=== PATIENT | female | born 1970 | race Two or more races ===

== ENCOUNTER 2020-03-16 19:30 | Inpatient (IN) | payer MEDICAID ==
[~2020-03-16] VITALS: Ht 154.9 cm; Wt 65.8 kg
--- NOTE | 2020-03-16 19:37 | NUR ---
not in waiting room
--- NOTE | 2020-03-16 19:45 | NUR ---
ED Nurse Note: PT WALKED IN TO ED C/O SORE THROAT SINCE FRIDAY. PT WAS PX AMOXICILLIN AT URGENT CARE AND HAS BEEN TAKING SINCE 03/14. DENIES SOB, CP. PRESENTS WITH FEVER OF 103 AT TRIAGE AND TACHY OF 135. AAOX4, AMBULATORY, NAD. PT PLACED ON DIRECTOR OF KNOWLEDGE MANAGEMENT AND GOWNED. EKG AT BEDSIDE. PT PLACED IN DROPLET PRECAUTION.
[2020-03-16 19:50] VITALS: BP 127/83
--- NOTE | 2020-03-16 19:50 | NUR ---
ED Nurse Note:. PT BLOOD, URINE, COVID SWAB COLLECTED AND SENT TO LAB.
--- NOTE | 2020-03-16 19:55 | NUR ---
ED Nurse Note: RT AT BEDSIDE FOR ABG
[2020-03-16] MEDS ORDERED: Sodium Chloride 2,200 ML IVLG ONE (20:00)
[2020-03-16] MEDS ORDERED: cefTRIAXone 1 GM in NS 55 ML IVPB ONE (20:00)
[2020-03-16] MEDS ORDERED: Azithromycin 500 MG in NS 275 ML IV ONE (20:00)
--- NOTE | 2020-03-16 20:00 | NUR ---
ED Nurse Note: XR AT BEDSIDE.
--- NOTE | 2020-03-16 20:04 | Emergency Room Report ---
History of Present Illness General Chief Complaint: General Complaint Source: Patient Present Illness HPI Disclaimer: Please note that this report is being documented using [employer] technology. This can lead to erroneous entry secondary to incorrect interpretation by the dictating instrument. HPI: 49-year-old female with no reported medical history presents for evaluation of fevers and sore throat. She was seen at a clinic yesterday and discharged with amoxicillin which she has been taking. She reports persistent sweats and fevers along with chills and persistent sore throat. Denies nasal congestion. Reports mild cough but states because she has phlegm in her throat that she is trying to clear. She denies shortness of breath, chest pain, palpitations, nausea, vomiting, diarrhea. Eating and drinking at baseline. Denies rash or skin breakdown. No known sick contacts. No recent travel. 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 EOMI. uvula midline. Pharynx is erythematous but not edematous. Nonobstructive. No stridor, tolerating secretions well. Cardiovascular: Tachycardic. S1 and S2 normal. No murmur appreciated Resp: Normal work of breathing. 94% on room air. Normal work of breathing. Abdomen: Abdomen is soft, nondistended. Nontender Skin: Intact. No abrasions, laceration or rash over the exposed skin MSK: Normal tone and bulk. Moving all extremities. No obvious deformity. Neuro: Awake and alert. Mentating appropriately. Procedures Critical Care Time Critical Care Time Total critical care time: Approximately 31 minutes Due to a high probability of clinically significant, life threatening deterioration, the patient required the highest level of preparedness to intervene emergently and I personally spent this critical care time directly and personally managing the patient. This critical care time included obtaining a history, examining the patient, pulse oximetry, ordering and reviewing studies , ordering treatments, evaluating response to treatment and updating management plan as needed, frequent reassessment and discussion with other providers as well as arranging for ultimate disposition. This critical to care time was performed to assess and manage the high probability of life-threatening deterioration that could result in multiorgan failure. This critical care time is separate from the separately billable procedures and treating other patients. Medical Decision Making Diagnostic Impression: Primary Impression: Pneumonia due to COVID-19 virus Additional Impression: UTI (urinary tract infection) ER Course Is a 49-year-old female presenting for evaluation of fever. Differential includes was not limited to sepsis, viral syndrome, URI, COVID-19, pneumonia, bronchitis, pharyngitis, tonsillitis, sinusitis to name a few. She arrives febrile, tachycardic saturating between 93-96% on room air but in no respiratory distress, no stridor, no wheezing. 99% on 2 L nasal cannula. Pharynx is erythematous but no exudates. She has been on amoxicillin. Based on the patient's presenting signs, symptoms and physical exam findings, the patient has been screened and is suspected to have COVID-19. Will treat empirically with ceftriaxone azithromycin, send COVID swab, broad labs including lactate, blood cultures, dimer. Patient started on IV fluids, antipyretics, Decadron and empiric antibiotics. Patient will require admission. 2130: Rapid COVID test returned positive. Chest x-ray concerning for bilateral hazy opacities that would be consistent with COVID-19 infection. Labs show an elevated white count with a neutrophil predominance and lymphopenia again consistent with COVID-19 infection. Blood gas shows slightly decreased PO2 at 55 the patient is compensating. She is feeling much better on nasal cannula and saturating 97% on 2 L. Chemistry largely within normal limits. Lactate within normal limits at 1.3. Troponin negative. Elevation in creatinine and ferritin. Dimer slightly elevated 0.95 and Lovenox was given. Possible urinary tract infection as well. Patient is already received ceftriaxone and azithromycin. Fever improving, tachycardia improving. Patient will require admission for COVID-19 pneumonia. Will admit to panel physician Dr. Howard who has accepted the patient. Laboratory Tests Test 03/16/20 20:00 03/16/20 20:05 03/16/20 20:10 White Blood Count 11.1 K/UL (4.8-10.8) H Red Blood Count 4.20 M/UL (4.20-5.40) Hemoglobin 12.5 G/DL (12.0-16.0) Hematocrit 36.8 % (37.0-47.0) L Mean Corpuscular Volume 88 FL (80-99) Mean Corpuscular Hemoglobin 29.8 PG (27.0-31.0) Mean Corpuscular Hemoglobin Concent 34.0 G/DL (32.0-36.0) Red Cell Distribution Width 11.9 % (11.6-14.8) Platelet Count 253 K/UL (150-450) Mean Platelet Volume 7.7 FL (6.5-10.1) Neutrophils (%) (Auto) 88.1 % (45.0-75.0) H Lymphocytes (%) (Auto) 8.3 % (20.0-45.0) L Monocytes (%) (Auto) 3.3 % (1.0-10.0) Eosinophils (%) (Auto) 0.0 % (0.0-3.0) Basophils (%) (Auto) 0.3 % (0.0-2.0) Prothrombin Time 11.1 SEC (9.30-11.50) Prothrombin Time INR 1.0 (0.9-1.1) Activated Partial Thromboplast Time 36 SEC (23-33) H D-Dimer 0.95 mg/L FEU (0.00-0.49) H Sodium Level 135 MMOL/L (136-145) L Potassium Level 3.6 MMOL/L (3.5-5.1) Chloride Level 97 MMOL/L (98-107) L Carbon Dioxide Level 26 MMOL/L (21-32) Anion Gap 12 mmol/L (5-15) Blood Urea Nitrogen 12 mg/dL (7-18) Creatinine 1.1 MG/DL (0.55-1.30) Estimated Glomerular Filtration Rate 52.4 mL/min (>60) Glucose Level 146 MG/DL (74-106) H Lactic Acid Level 1.30 mmol/L (0.4-2.0) Calcium Level 8.7 MG/DL (8.5-10.1) Phosphorus Level 2.4 MG/DL (2.5-4.9) L Magnesium Level 2.2 MG/DL (1.8-2.4) Ferritin 573 NG/ML (8-388) H Total Bilirubin 0.6 MG/DL (0.2-1.0) Aspartate Amino Transferase (AST) 28 U/L (15-37) Alanine Aminotransferase (ALT) 23 U/L (12-78) Alkaline Phosphatase 69 U/L (46-116) Total Creatine Kinase 112 U/L (26-308) Creatine Kinase MB 0.5 NG/ML (0.0-3.6) Creatine Kinase MB Relative Index 0.4 Troponin I 0.000 ng/mL (0.000-0.056) C-Reactive Protein, Quantitative 30.3 mg/dL (0.00-0.90) H Pro-B-Type Natriuretic Peptide 29 pg/mL (0-125) Total Protein 9.0 G/DL (6.4-8.2) H Albumin 3.3 G/DL (3.4-5.0) L Globulin 5.7 g/dL Albumin/Globulin Ratio 0.6 (1.0-2.7) L Arterial Blood pH 7.496 (7.350-7.450) Arterial Blood Partial Pressure CO2 29.1 mmHg (35.0-45.0) L Arterial Blood Partial Pressure O2 55.0 mmHg (75.0-100.0) L Arterial Blood HCO3 22.0 mmol/L (22.0-26.0) Arterial Blood Oxygen Saturation 91.3 % (95-100) L Arterial Blood Base Excess -0.3 (-2-2) Jeronimo Test Positive Urine Color Yellow Urine Appearance Cloudy Urine pH 5 (4.5-8.0) Urine Specific [place] 1.020 (1.005-1.035) Urine Protein 4+ (NEGATIVE) H Urine Glucose (UA) Negative (NEGATIVE) Urine Ketones Negative (NEGATIVE) Urine Blood 5+ (NEGATIVE) H Urine Nitrite Negative (NEGATIVE) Urine Bilirubin Negative (NEGATIVE) Urine Urobilinogen Normal MG/DL (0.0-1.0) Urine Leukocyte Esterase 2+ (NEGATIVE) H Urine RBC 5-10 /HPF (0 - 2) H Urine WBC 2-4 /HPF (0 - 2) Urine Squamous Epithelial Cells Occasional /LPF Urine Bacteria Moderate /HPF (NONE) H Microbiology Date/Time Source Procedure Growth Status 03/16/20 20:00 Nasopharynx SARS-CoV-2 RdRp Gene Assay - Final Complete EKG Diagnostic Results EKG Time: 20:10 Rate: tachycardiac Other Impression Sinus tachycardia with a normal axis, normal intervals, nonspecific T wave flattening diffusely. Low voltage EKG. No obvious ST segment changes. Rhythm Strip Diag. Results Rhythm Strip Time: 20:10 EP Interpretation: yes Rate: 130s Rhythm: no PVC's, no ectopy, other - Tachycardia Chest X-Ray Diagnostic Results Chest X-Ray Diagnostic Results : Chest X-Ray Ordered: Yes # of Views/Limited/Complete: 1 View Indication: Other - Fever EP Interpretation: Yes Interpretation: no effusion, no pneumothorax, other - Bilateral patchy vascular congestion Impression: Other - Patchy bilateral vascular congestion Electronically Signed by: Electronically signed by Dr. Iglesia Douglas Last Vital Signs Date Time Temp Pulse Resp B/P (MAP) Pulse Ox O2 Delivery O2 Flow Rate FiO2 03/16/20 19:41 102.9 142 16 130/74 (92) 92 Room Air Disposition: ADMITTED INPATIENT Condition: Serious Referrals: NOT CHOSEN IPA/,REFERRING (PCP) Iglesia Douglas MD Mar 16, 2020 20:04
[2020-03-16] MEDS ORDERED: Acetaminophen 500mg (ES) tab ORAL ONE (20:15)
[2020-03-16] MEDS ORDERED: dexAMETHasone 10mg/ml Inj IV ONE (20:30)
--- NOTE | 2020-03-16 20:31 | Diagnostic Imaging Report ---
EXAM: XR Chest, 1 View CLINICAL HISTORY: SOB TECHNIQUE: Frontal view of the chest. COMPARISON: No relevant prior studies available. FINDINGS: Lungs: Patchy areas of increased hazy opacities in the lungs, left worse than right. An acute infectious/inflammatory process should be considered. Pleural space: No definite plain film evidence for pneumothorax. Heart: Unremarkable. No cardiomegaly. Mediastinum: Unremarkable. Bones/joints: Unremarkable. IMPRESSION: Patchy areas of increased hazy opacities in the lungs, left worse than right. An acute infectious/inflammatory process should be considered.
[2020-03-16 20:32] LABS: HEMATOCRIT 36.8 % (37.0-47.0); HEMOGLOBIN 12.5 G/DL (12.0-16.0); MEAN CORPUSCULAR VOLUME 88 FL (80-99); PLATELET COUNT 253 K/UL (150-450); RED CELL DISTRIBUTION WIDTH 11.9 % (11.6-14.8); WHITE BLOOD COUNT 11.1 K/UL (4.8-10.8)
[2020-03-16 20:33] LABS: BASOPHILS % (AUTO) 0.3 % (0.0-2.0); LYMPHOCYTES % (AUTO) 8.3 % (20.0-45.0); MONOCYTES % (AUTO) 3.3 % (1.0-10.0); NEUTROPHILS % (AUTO) 88.1 % (45.0-75.0)
[2020-03-16 20:49] LABS: ANION GAP 12 mmol/L (5-15); BLOOD UREA NITROGEN 12 mg/dL (7-18); CALCIUM 8.7 MG/DL (8.5-10.1); CARBON DIOXIDE 26 MMOL/L (21-32); CHLORIDE 97 MMOL/L (98-107); CREATININE 1.1 MG/DL (0.55-1.30); POTASSIUM 3.6 MMOL/L (3.5-5.1); SODIUM 135 MMOL/L (136-145)
[2020-03-16 20:49] LABS: APPEARANCE,URINE CLOUDY; BILIRUBIN, URINE NEGATIVE (NEGATIVE); GLUCOSE, URINE (UA) NEGATIVE (NEGATIVE); KETONES,URINE NEGATIVE (NEGATIVE); LEUKOCYTE ESTERASE ,URINE 2+ (NEGATIVE); NITRITE,URINE NEGATIVE (NEGATIVE); PH,URINE 5 (4.5-8.0); PROTEIN,URINE 4+ (NEGATIVE); UROBILINOGEN,URINE NORMAL MG/DL (0.0-1.0)
[2020-03-16 20:54] VITALS: BP 115/67
[2020-03-16 20:57] LABS: COLOR,URINE YELLOW
[2020-03-16] MEDS ORDERED: Enoxaparin 80mg Inj SUBQ SCH (21:00)
[2020-03-16 21:05] LABS: ALANINE AMINOTRANSFERASE 23 U/L (12-78); ALBUMIN 3.3 G/DL (3.4-5.0); ALBUMIN/GLOBULIN RATIO 0.6 (1.0-2.7); ALKALINE PHOSPHATASE 69 U/L (46-116); ASPARTATE AMINO TRANSFERASE 28 U/L (15-37); BILIRUBIN,TOTAL 0.6 MG/DL (0.2-1.0); CKMB 0.5 NG/ML (0.0-3.6); CREATINE KINASE 112 U/L (26-308); FERRITIN 573 NG/ML (8-388); PHOSPHORUS 2.4 MG/DL (2.5-4.9)
[2020-03-16 21:34] VITALS: BP 103/57
[2020-03-16] MEDS ORDERED: Miralax 17gm pkt ORAL PRN (21:45)
--- NOTE | 2020-03-16 21:49 | NUR ---
ED Nurse Note: GAVE REPORT TO LORNE HU.
--- NOTE | 2020-03-16 22:00 | NUR ---
TRANSFER TO FLOOR: Patient transferred to [facility] via [facility] in stable condition via transport 19 as ordered, per dr. Howard. Report given to Libby HU. Belongings sent with patient
--- NOTE | 2020-03-16 22:05 | NUR ---
NURSE NOTES: Received report from CHERELLE Hung RN. Pt in stable condition, denies pain, no signs or symptoms of distress noted at this time. Will start plan of care and close monitoring
--- NOTE | 2020-03-16 22:24 | NUR ---
ED Nurse Note: PT MED PLACED IN ED SAFE. BAG #[id number]
[2020-03-16 23:39] VITALS: BP 130/78
[2020-03-17 04:00] VITALS: BP 98/62
--- NOTE | 2020-03-17 07:00 | NUR ---
HAND-OFF: Report given to Vonnie Canela RN. Pt denies pain at this time; in stable condition. Plan of care endorsed.
[2020-03-17 07:05] LABS: ALBUMIN 2.6 G/DL (3.4-5.0); ANION GAP 10 mmol/L (5-15); BLOOD UREA NITROGEN 14 mg/dL (7-18); CALCIUM 8.6 MG/DL (8.5-10.1); CARBON DIOXIDE 24 MMOL/L (21-32); CHLORIDE 105 MMOL/L (98-107); CREATININE 0.9 MG/DL (0.55-1.30); PHOSPHORUS 3.3 MG/DL (2.5-4.9); POTASSIUM 3.9 MMOL/L (3.5-5.1); SODIUM 139 MMOL/L (136-145)
--- NOTE | 2020-03-17 07:05 | NUR ---
NURSE NOTES: Received report from MAYTE Moctezuma. Patient AAO x4. No signs of distress. Breathing is regular and unlabored on 2L NC. Bed low and locked, side rails x2 raised, call light in reach, fall education provided.
[2020-03-17 07:19] LABS: HEMATOCRIT 34.7 % (37.0-47.0); HEMOGLOBIN 11.3 G/DL (12.0-16.0); MEAN CORPUSCULAR VOLUME 91 FL (80-99); PLATELET COUNT 237 K/UL (150-450); RED BLOOD COUNT 3.83 M/UL (4.20-5.40); RED CELL DISTRIBUTION WIDTH 11.5 % (11.6-14.8); WHITE BLOOD COUNT 9.1 K/UL (4.8-10.8)
[2020-03-17 08:00] VITALS: BP 101/59
[2020-03-17] MEDS: Heparin 5000 units/ml inj SUBQ SCH ×2 (08:30→20:41)
--- NOTE | 2020-03-17 11:27 | NUR ---
CASE MANAGEMENT: INITIAL REVIEW 03/16/2020 49 YO F PRESENTED TO ED FROM HOME CC: SORE THROAT PMHx: No Stated History SI:SEPSIS. COVID (+) VS: T 102.9 HR 142 RR 16 B/P 130/74 SATS 92% ON RA LABS: WBC 11.1 NA 135 CL 97 GLU 146 ABGs PH 7.496 PCO2 29.1 PO2 55 O2 SAT 91.3 IS: NS BOLUS X1 ROCEPHIN IV X1 AZITHROMYCIN IV X1 TYLENOL PO X1 DEXAMETHASONE IV X1 CXR Impression: Other - Patchy bilateral vascular congestion PATIENT ADMITTED TO TELE 03/16/2020 @ 2034 DCP: HOME PLAN OF CARE: DROPLET PRECAUTIONS/ISOLATION CONCURRENT REVIEW 03/17/2020 SI:SEPSIS. COVID (+) VS: T 98.1 HR 81 RR 20 B/P 101/59 SATS 97% ON 2L/NC LABS: GLU 185 IS:DECADRON PO QD CEFTRIAXONE IV Q24H AZITHROMYCIN IV Q24H TELE PLAN OF CARE: PULMO HYGIENE ISOLATION
[2020-03-17 12:00] VITALS: BP 109/60
--- NOTE | 2020-03-17 12:13 | Consultation ---
History of Present Illness General Date patient seen: Mar 17, 2020 Chief Complaint: General Complaint Present Illness HPI 49-year-old female with no reported medical history presented to ER for evaluation of persistent sweats and fevers along with chills and persistent sore throat + mild cough . She denies shortness of breath, chest pain, palpitations, nausea, vomiting, diarrhea. Her CXR showed bilateral L>R interstitial pneumonia. Her rapid COVID test was positive. She is admitted to telemetry for further management. Allergies: Coded Allergies: No Known Allergies (Unverified , 03/16/20) Patient History Healthcare decision maker Resuscitation status Advanced Directive on File Past Medical/Surgical History Past Medical/Surgical History: (1) No significant medical problems Review of Systems All Other Systems: negative except mentioned in HPI Physical Exam General Appearance: WD/WN, no apparent distress Lines, tubes and drains: peripheral HEENT: normocephalic, atraumatic Neck: non-tender, normal alignment Respiratory/Chest: chest wall non-tender, lungs clear, normal breath sounds Breasts: no masses Cardiovascular/Chest: normal peripheral pulses Abdomen: normal bowel sounds Genitourinary/Rectal: normal genital exam Extremities: normal range of motion Skin Exam: normal pigmentation 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 Last 24 Hour Vital Signs Date Time Temp Pulse Resp B/P (MAP) Pulse Ox O2 Delivery O2 Flow Rate FiO2 03/17/20 09:00 Nasal Cannula 2.0 03/17/20 08:00 98.1 91 20 101/59 (73) 97 03/17/20 08:00 81 03/17/20 04:00 72 03/17/20 04:00 98.6 76 18 98/62 (74) 96 03/17/20 00:00 86 03/16/20 23:39 98.1 90 22 130/78 (95) 96 03/16/20 23:15 Nasal Cannula 2.0 03/16/20 22:36 102 03/16/20 22:00 100.3 101 28 103/57 99 Nasal Cannula 2.0 93 03/16/20 21:34 101 28 103/57 99 Nasal Cannula 2.0 93 03/16/20 20:54 100.3 116 30 115/67 97 Nasal Cannula 2.0 93 03/16/20 20:46 100.3 03/16/20 19:50 102.9 133 25 127/83 93 Room Air 03/16/20 19:50 132 25 Room Air 93 03/16/20 19:41 102.9 142 16 130/74 (92) 92 Room Air Intake and Output 03/16/20 03/17/20 19:00 07:00 Intake Total 2650 ml Balance 2650 ml Intake Oral 450 ml IV Total 2200 ml # Voids 4 Laboratory Tests Test 03/16/20 20:00 03/16/20 20:05 03/16/20 20:10 03/17/20 06:05 White Blood Count 11.1 K/UL (4.8-10.8) H 9.1 K/UL (4.8-10.8) Red Blood Count 4.20 M/UL (4.20-5.40) 3.83 M/UL (4.20-5.40) L Hemoglobin 12.5 G/DL (12.0-16.0) 11.3 G/DL (12.0-16.0) L Hematocrit 36.8 % (37.0-47.0) L 34.7 % (37.0-47.0) L Mean Corpuscular Volume 88 FL (80-99) 91 FL (80-99) Mean Corpuscular Hemoglobin 29.8 PG (27.0-31.0) 29.5 PG (27.0-31.0) Mean Corpuscular Hemoglobin Concent 34.0 G/DL (32.0-36.0) 32.6 G/DL (32.0-36.0) Red Cell Distribution Width 11.9 % (11.6-14.8) 11.5 % (11.6-14.8) L Platelet Count 253 K/UL (150-450) 237 K/UL (150-450) Mean Platelet Volume 7.7 FL (6.5-10.1) 7.4 FL (6.5-10.1) Neutrophils (%) (Auto) 88.1 % (45.0-75.0) H % (45.0-75.0) Lymphocytes (%) (Auto) 8.3 % (20.0-45.0) L % (20.0-45.0) Monocytes (%) (Auto) 3.3 % (1.0-10.0) % (1.0-10.0) Eosinophils (%) (Auto) 0.0 % (0.0-3.0) % (0.0-3.0) Basophils (%) (Auto) 0.3 % (0.0-2.0) % (0.0-2.0) Prothrombin Time 11.1 SEC (9.30-11.50) Prothromb Time International Ratio 1.0 (0.9-1.1) Activated Partial Thromboplast Time 36 SEC (23-33) H D-Dimer 0.95 mg/L FEU (0.00-0.49) H Sodium Level 135 MMOL/L (136-145) L 139 MMOL/L (136-145) Potassium Level 3.6 MMOL/L (3.5-5.1) 3.9 MMOL/L (3.5-5.1) Chloride Level 97 MMOL/L (98-107) L 105 MMOL/L (98-107) Carbon Dioxide Level 26 MMOL/L (21-32) 24 MMOL/L (21-32) Anion Gap 12 mmol/L (5-15) 10 mmol/L (5-15) Blood Urea Nitrogen 12 mg/dL (7-18) 14 mg/dL (7-18) Creatinine 1.1 MG/DL (0.55-1.30) 0.9 MG/DL (0.55-1.30) Estimat Glomerular Filtration Rate 52.4 mL/min (>60) > 60 mL/min (>60) Glucose Level 146 MG/DL (74-106) H 185 MG/DL (74-106) H Lactic Acid Level 1.30 mmol/L (0.4-2.0) Calcium Level 8.7 MG/DL (8.5-10.1) 8.6 MG/DL (8.5-10.1) Phosphorus Level 2.4 MG/DL (2.5-4.9) L 3.3 MG/DL (2.5-4.9) Magnesium Level 2.2 MG/DL (1.8-2.4) Ferritin 573 NG/ML (8-388) H Total Bilirubin 0.6 MG/DL (0.2-1.0) Aspartate Amino Transf (AST/SGOT) 28 U/L (15-37) Alanine Aminotransferase (ALT/SGPT) 23 U/L (12-78) Alkaline Phosphatase 69 U/L (46-116) Total Creatine Kinase 112 U/L (26-308) Creatine Kinase MB 0.5 NG/ML (0.0-3.6) Creatine Kinase MB Relative Index 0.4 Troponin I 0.000 ng/mL (0.000-0.056) C-Reactive Protein, Quantitative 30.3 mg/dL (0.00-0.90) H Pro-B-Type Natriuretic Peptide 29 pg/mL (0-125) Total Protein 9.0 G/DL (6.4-8.2) H Albumin 3.3 G/DL (3.4-5.0) L 2.6 G/DL (3.4-5.0) L Globulin 5.7 g/dL Albumin/Globulin Ratio 0.6 (1.0-2.7) L Arterial Blood pH 7.496 (7.350-7.450) Arterial Blood Partial Pressure CO2 29.1 mmHg (35.0-45.0) L Arterial Blood Partial Pressure O2 55.0 mmHg (75.0-100.0) L Arterial Blood HCO3 22.0 mmol/L (22.0-26.0) Arterial Blood Oxygen Saturation 91.3 % (95-100) L Arterial Blood Base Excess -0.3 (-2-2) Jeronimo Test Positive Urine Color Yellow Urine Appearance Cloudy Urine pH 5 (4.5-8.0) Urine Specific [place] 1.020 (1.005-1.035) Urine Protein 4+ (NEGATIVE) H Urine Glucose (UA) Negative (NEGATIVE) Urine Ketones Negative (NEGATIVE) Urine Blood 5+ (NEGATIVE) H Urine Nitrite Negative (NEGATIVE) Urine Bilirubin Negative (NEGATIVE) Urine Urobilinogen Normal MG/DL (0.0-1.0) Urine Leukocyte Esterase 2+ (NEGATIVE) H Urine RBC 5-10 /HPF (0 - 2) H Urine WBC 2-4 /HPF (0 - 2) Urine Squamous Epithelial Cells Occasional /LPF Urine Bacteria Moderate /HPF (NONE) H Differential Total Cells Counted 100 Neutrophils % (Manual) 92 % (45-75) H Lymphocytes % (Manual) 7 % (20-45) L Monocytes % (Manual) 1 % (1-10) Eosinophils % (Manual) 0 % (0-3) Basophils % (Manual) 0 % (0-2) Band Neutrophils 0 % (0-8) Platelet Estimate Adequate Platelet Morphology Normal Hypochromasia 1+ Anisocytosis 1+ Microbiology Date/Time Source Procedure Growth Status 03/16/20 20:00 Nasopharynx SARS-CoV-2 RdRp Gene Assay - Final Complete 03/16/20 20:10 Urine,Clean Catch Urine Culture - Preliminary NO GROWTH Resulted Height (Feet): 5 Height (Inches): 1.00 Weight (Pounds): 145 Medications Current Medications Medications (Trade) Dose Ordered Sig/Sammie Route PRN Reason Start Time Stop Time Status Last Admin Dose Admin Acetaminophen (Tylenol) 650 mg Q4H PRN ORAL FEVER 03/16/20 21:45 04/15/20 21:44 Albuterol/ Ipratropium (Combivent Respimat) 1 puff Q4H PRN INH Shortness of Breath 03/16/20 22:00 04/15/20 21:59 Azithromycin 250 mg/Dextrose 275 ml @ 275 mls/hr Q24H IV 03/17/20 20:00 03/22/20 19:59 Ceftriaxone Sodium 1 gm/ Dextrose 55 ml @ 110 mls/hr Q24H IVPB 03/17/20 20:00 03/24/20 19:59 Dexamethasone (Decadron) 4 mg DAILY ORAL 03/17/20 09:00 04/16/20 08:59 03/17/20 08:28 Dextrose (Dextrose 50%) 25 ml Q30M PRN IV Hypoglycemia 03/16/20 21:45 06/14/20 21:44 Dextrose (Dextrose 50%) 50 ml Q30M PRN IV Hypoglycemia 03/16/20 21:45 06/14/20 21:44 Heparin Sodium (Porcine) (Heparin 5000 units/ml) 5,000 units EVERY 12 HOURS SUBQ 03/17/20 09:00 05/01/20 08:59 03/17/20 08:30 Ondansetron HCl (Zofran) 4 mg Q6H PRN IVP Nausea & Vomiting 03/16/20 21:45 04/15/20 21:44 Polyethylene Glycol (Miralax) 17 gm DAILYPRN PRN ORAL Constipation 03/16/20 21:45 04/15/20 21:44 Promethazine HCl/ Codeine (Phenergan with Codeine) 5 ml Q6H PRN ORAL cough 03/16/20 21:45 04/15/20 21:44 Assessment/Plan Problem List: (1) Pneumonia due to COVID-19 virus ICD Codes: U07.1 - COVID-19; J12.89 - Other viral pneumonia SNOMED: 504458071, 604233486 (2) Sepsis ICD Codes: A41.9 - Sepsis, unspecified organism SNOMED: 58634283 Assessment/Plan: ID evaluation Isolation symptomatic treatment Steroids+ Ceftriaxone + Zithromax + antiviral meds by ID cough syrup Keren Jenkins MD Mar 17, 2020 12:13
--- NOTE | 2020-03-17 13:30 | NUR ---
NURSE NOTES: Sputum culture collected and sent to lab.
--- NOTE | 2020-03-17 14:01 | History & Physical ---
History and Physical History & Physicial Anil Howard MD Mar 17, 2020 14:01
[2020-03-17 16:00] VITALS: BP 99/57
[2020-03-17 18:00] VITALS: BP 109/68
--- NOTE | 2020-03-17 19:28 | NUR ---
NURSE NOTES: Received hand-off report from MAYTE Fernando. Breathing is even and unlabored. Bed in lowest and locked position, bed alarm activated, bed rails 2x up. Bilateral dorsalis pedis pulses +2, patient in stable condition, alert and oriented x4. Call light within reach.
--- NOTE | 2020-03-17 19:28 | NUR ---
HAND-OFF: Report given to MAYTE Lucero.
[2020-03-17 20:00] VITALS: BP 109/64
[2020-03-17] MEDS: cefTRIAXone 1 GM in D5W 55 ML IVPB SCH (20:39)
[2020-03-17] MEDS: Azithromycin 250 MG in D5W 275 ML IV SCH (20:39)
--- NOTE | 2020-03-17 22:29 | History and Physical Report ---
DATE OF ADMISSION: 03/16/2020 CHIEF COMPLAINT: Shortness of breath and cough. HISTORY OF PRESENT ILLNESS: The patient is a 49-year-old female, denies any past medical or past surgical history who presented initially to outside clinic complaining about productive cough, fever, and chills. Subsequently she was prescribed ampicillin. However, her symptoms got progressively worsening. She decided come to the emergency department. The patient was complaining of persistent sweating, fever along with chills and persistent sore throat, mild cough. She denies any shortness of breath or chest pain, palpitation, nausea, vomiting, or diarrhea. Chest x-ray confirmed the patient has bilateral left greater than right interstitial pneumonia. A rapid COVID-19 test was positive and subsequently the patient was admitted to telemetry with COVID-19 pneumonia with mild hypoxemia. PAST MEDICAL HISTORY/PAST SURGICAL HISTORY: None. MEDICATIONS AT HOME: None. ALLERGIES: No known drug allergies. SOCIAL HISTORY: Denies any smoking, alcohol, or drugs. FAMILY HISTORY: Noncontributory. REVIEW OF SYSTEMS: Mostly as above. Denies any dysuria, frequency, hematuria, hematochezia. Complained about cough and sore throat, mild night sweats, fever. PHYSICAL EXAMINATION: VITAL SIGNS: On admission from the emergency department, temperature was 102.9, pulse of 142, respirations 16, and blood pressure 130/74. GENERAL: The patient is awake and responsive, no acute distress. HEENT: Head and neck examination, pupils are equal and reactive to light. Extraocular movements intact. NECK: Supple. No JVD. LUNGS: Good air entry. No wheeze or rales. HEART: S1, S2. Regular rhythm. No gallops. ABDOMEN: Soft, nondistended, nontender. Positive bowel sounds. EXTREMITIES: No cyanosis, clubbing, edema NEUROLOGIC: Cranial nerves II through XII grossly normal. Motor is 5/5 in all extremities. Gait is intact. RECTAL/GENITOURINARY: Refused and deferred. PSYCHIATRIC: Mood and affect is intact. LABORATORY AND DIAGNOSTIC DATA: Laboratory on admission from the emergency department, WBC of 11, hemoglobin 12, hematocrit 36, platelet is 253. ABG, pH of 7.49, pCO2 of 29, pO2 of 55. Sodium 135, potassium , chloride 97, bicarb 26, BUN 12, creatinine 1.1, GFR 52, glucose is 146. Calcium is 8.7, phosphorus is 2.4, magnesium 2.2. Ferritin is 573. Total bilirubin of 0.6, AST of 28, ALT of 28, alkaline phosphatase was 69. Troponin is less than 0.00. CRP of 30.3. Albumin is 3.3. PT of 11, INR is 1.0, PTT of 36. D-dimer is 0.95. UA is +4 protein, +5 blood, +2 leukocytes, 5 to 10 rbc's, moderate wbc's. COVID-19 test positive. Urine culture, pending. Chest x-ray noted to be patchy area of increased hazy opacity in the lungs, left worse than right, acute infection, inflammation process should be considered. ASSESSMENT: 1. COVID-19 pneumonia. 2. Mild hypoxemia. 3. Acute urinary tract infection. PLAN: 1. Admit the patient to monitored unit. 2. We will follow up with Dr. Jenkins, Pulmonary Critical Care. 3. The patient placed on COVID-19 isolation room. 4. Code status is Full code. 5. DVT prophylaxis with heparin subcutaneous. 6. Start the patient on broad-spectrum antibiotic with Rocephin and azithromycin. We will follow up with laboratory in the morning. Anil Howard M.D. DR: Chava JOB#: [id number] CC:
[2020-03-18] VITALS: BP 106/59
[2020-03-18 04:00] VITALS: BP 130/72
--- NOTE | 2020-03-18 04:00 | NUR ---
NURSE NOTES: Patient in stable condition, states pain level at zero from a scale of 0 -10. On NC 2L, sPo2: 98%. Bed in lowest and locked position, bed alarm activated, call light within reach, ekg monitor in place.
--- NOTE | 2020-03-18 07:29 | NUR ---
HAND-OFF: Report given to MAYTE Bustos. Plan of care endorsed, relayed gram stain sputum result (few epithelial cells, few WBCs, moderate gram positive cocci, moderate gram positive rods.) Patient in stable condition.
--- NOTE | 2020-03-18 07:29 | NUR ---
NURSE NOTES: Received report from Margaret/MAYTE. Patient AAO x4, mostly Bruneian speaking. Lying semi-isaac's, resting comfortably. on 2L NC No signs of distress. Breathing is regular and unlabored. Able to make needs Known, Deanna pain at this time. Bed low position and locked, side rails x2 raised, call light within reach, fall education provided. Encouraged to use call light when needed. Will continue plan of care. Addendum: 03/18/20 at 0737 by Juli Carrillo RN Received report from Destiney
[2020-03-18 07:48] LABS: HEMATOCRIT 32.3 % (37.0-47.0); HEMOGLOBIN 10.9 G/DL (12.0-16.0); MEAN CORPUSCULAR VOLUME 90 FL (80-99); PLATELET COUNT 271 K/UL (150-450); RED BLOOD COUNT 3.59 M/UL (4.20-5.40); RED CELL DISTRIBUTION WIDTH 11.5 % (11.6-14.8); WHITE BLOOD COUNT 11.3 K/UL (4.8-10.8)
[2020-03-18 08:00] VITALS: BP 102/62
[2020-03-18 08:25] LABS: ALANINE AMINOTRANSFERASE 32 U/L (12-78); ALBUMIN 2.6 G/DL (3.4-5.0); ALBUMIN/GLOBULIN RATIO 0.6 (1.0-2.7); ALKALINE PHOSPHATASE 61 U/L (46-116); ANION GAP 12 mmol/L (5-15); ASPARTATE AMINO TRANSFERASE 31 U/L (15-37); BILIRUBIN,TOTAL 0.2 MG/DL (0.2-1.0); BLOOD UREA NITROGEN 17 mg/dL (7-18); CALCIUM 7.9 MG/DL (8.5-10.1); CARBON DIOXIDE 25 MMOL/L (21-32); CHLORIDE 106 MMOL/L (98-107); CREATININE 0.9 MG/DL (0.55-1.30); PHOSPHORUS 3.1 MG/DL (2.5-4.9); POTASSIUM 3.8 MMOL/L (3.5-5.1); SODIUM 143 MMOL/L (136-145)
[2020-03-18] MEDS: Heparin 5000 units/ml inj SUBQ SCH ×2 (08:30→20:11)
--- NOTE | 2020-03-18 11:13 | NUR ---
CASE MANAGEMENT: REVIEW 03/18/2020 SI:COVID-19 pneumonia VS: T 98.6 HR 98 RR 20 B/P 102/62 SATS 98% ON 2L/NC LABS: WBC 11.3 GLU 169 CA 7.9 CRP 12.9 IS:DECADRON PO QD CEFTRIAXONE IV Q24H AZITHROMYCIN IV Q24H TELE PLAN OF CARE: patient on broad-spectrum antibiotic with Rocephin and azithromycin
[2020-03-18] MEDS: Promethazine/Codeine 5ml UD ORAL PRN (11:30)
[2020-03-18 12:00] VITALS: BP 103/53
--- NOTE | 2020-03-18 15:36 | Internal Med Progress Note ---
Subjective Date of Service: Mar 18, 2020 Physician Name CeliaSebastián Attending Physician Anil Howard MD Current Medications Medications (Trade) Dose Ordered Sig/Sammie Route PRN Reason Start Time Stop Time Status Last Admin Dose Admin Acetaminophen (Tylenol) 650 mg Q4H PRN ORAL FEVER 03/16/20 21:45 04/15/20 21:44 Albuterol/ Ipratropium (Combivent Respimat) 1 puff Q4H PRN INH Shortness of Breath 03/16/20 22:00 04/15/20 21:59 Azithromycin 250 mg/Dextrose 275 ml @ 275 mls/hr Q24H IV 03/17/20 20:00 03/22/20 19:59 03/17/20 20:39 Ceftriaxone Sodium 1 gm/ Dextrose 55 ml @ 110 mls/hr Q24H IVPB 03/17/20 20:00 03/24/20 19:59 03/17/20 20:39 Dexamethasone (Decadron) 4 mg DAILY ORAL 03/17/20 09:00 04/16/20 08:59 03/18/20 08:30 Dextrose (Dextrose 50%) 25 ml Q30M PRN IV Hypoglycemia 03/16/20 21:45 06/14/20 21:44 Dextrose (Dextrose 50%) 50 ml Q30M PRN IV Hypoglycemia 03/16/20 21:45 06/14/20 21:44 Heparin Sodium (Porcine) (Heparin 5000 units/ml) 5,000 units EVERY 12 HOURS SUBQ 03/17/20 09:00 05/01/20 08:59 03/18/20 08:30 Ondansetron HCl (Zofran) 4 mg Q6H PRN IVP Nausea & Vomiting 03/16/20 21:45 04/15/20 21:44 Polyethylene Glycol (Miralax) 17 gm DAILYPRN PRN ORAL Constipation 03/16/20 21:45 04/15/20 21:44 Promethazine HCl/ Codeine (Phenergan with Codeine) 5 ml Q6H PRN ORAL cough 03/16/20 21:45 04/15/20 21:44 03/18/20 11:30 Allergies: Coded Allergies: No Known Allergies (Unverified , 03/16/20) ROS Limited/Unobtainable: No Constitutional: Reports: chills, fever HEENT: Reports: no symptoms Cardiovascular: Reports: no symptoms Respiratory: Reports: cough Gastrointestinal/Abdominal: Reports: no symptoms Genitourinary: Reports: no symptoms Neurologic/Psychiatric: Reports: no symptoms Subjective 49 YO F admitted with cough and fever. Now COVID 19 pneumonia. Cover for Int Rashawn-DR Howard Objective Last Vital Signs Date Time Temp Pulse Resp B/P (MAP) Pulse Ox O2 Delivery O2 Flow Rate FiO2 03/18/20 12:00 79 03/18/20 12:00 97.9 18 103/53 (70) 94 03/18/20 09:00 Nasal Cannula 2.0 03/16/20 22:00 93 Laboratory Tests Test 03/18/20 07:20 White Blood Count 11.3 K/UL (4.8-10.8) H Red Blood Count 3.59 M/UL (4.20-5.40) L Hemoglobin 10.9 G/DL (12.0-16.0) L Hematocrit 32.3 % (37.0-47.0) L Mean Corpuscular Volume 90 FL (80-99) Mean Corpuscular Hemoglobin 30.3 PG (27.0-31.0) Mean Corpuscular Hemoglobin Concent 33.7 G/DL (32.0-36.0) Red Cell Distribution Width 11.5 % (11.6-14.8) L Platelet Count 271 K/UL (150-450) Mean Platelet Volume 7.1 FL (6.5-10.1) Neutrophils (%) (Auto) % (45.0-75.0) Lymphocytes (%) (Auto) % (20.0-45.0) Monocytes (%) (Auto) % (1.0-10.0) Eosinophils (%) (Auto) % (0.0-3.0) Basophils (%) (Auto) % (0.0-2.0) Differential Total Cells Counted 100 Neutrophils % (Manual) 89 % (45-75) H Lymphocytes % (Manual) 9 % (20-45) L Monocytes % (Manual) 2 % (1-10) Eosinophils % (Manual) 0 % (0-3) Basophils % (Manual) 0 % (0-2) Band Neutrophils 0 % (0-8) Platelet Estimate Adequate Platelet Morphology Normal Red Blood Cell Morphology Normal Erythrocyte Sedimentation Rate 109 MM/HR (0-30) H Sodium Level 143 MMOL/L (136-145) Potassium Level 3.8 MMOL/L (3.5-5.1) Chloride Level 106 MMOL/L (98-107) Carbon Dioxide Level 25 MMOL/L (21-32) Anion Gap 12 mmol/L (5-15) Blood Urea Nitrogen 17 mg/dL (7-18) Creatinine 0.9 MG/DL (0.55-1.30) Estimat Glomerular Filtration Rate > 60 mL/min (>60) Glucose Level 169 MG/DL (74-106) H Calcium Level 7.9 MG/DL (8.5-10.1) L Phosphorus Level 3.1 MG/DL (2.5-4.9) Magnesium Level 2.3 MG/DL (1.8-2.4) Total Bilirubin 0.2 MG/DL (0.2-1.0) Aspartate Amino Transf (AST/SGOT) 31 U/L (15-37) Alanine Aminotransferase (ALT/SGPT) 32 U/L (12-78) Alkaline Phosphatase 61 U/L (46-116) C-Reactive Protein, Quantitative 12.9 mg/dL (0.00-0.90) H Total Protein 6.8 G/DL (6.4-8.2) Albumin 2.6 G/DL (3.4-5.0) L Globulin 4.2 g/dL Albumin/Globulin Ratio 0.6 (1.0-2.7) L Microbiology Date/Time Source Procedure Growth Status 03/16/20 20:00 Blood Blood Culture - Preliminary NO GROWTH AFTER 24 HOURS Resulted 03/16/20 19:45 Blood Blood Culture - Preliminary NO GROWTH AFTER 24 HOURS Resulted 03/17/20 14:00 Sputum Gram Stain - Final Resulted 03/17/20 14:00 Sputum Sputum Culture - Preliminary NORMAL UPPER RESPIRATORY TAMIKO AT 24 ... Resulted 03/16/20 20:00 Nasopharynx SARS-CoV-2 RdRp Gene Assay - Final Complete 03/16/20 20:10 Urine,Clean Catch Urine Culture - Preliminary Gram Negative Satinder Resulted Intake and Output 03/17/20 03/18/20 19:00 07:00 Intake Total 560 ml 360 ml Balance 560 ml 360 ml Intake Oral 560 ml Other 360 ml # Voids 3 3 Objective PHYSICAL EXAMINATION: GENERAL: The patient is awake and responsive, no acute distress. HEENT: Head and neck examination, pupils are equal and reactive to light. Extraocular movements intact. NECK: Supple. No JVD. LUNGS: Good air entry. No wheeze or rales. HEART: S1, S2. Regular rhythm. No gallops. ABDOMEN: Soft, nondistended, nontender. Positive bowel sounds. EXTREMITIES: No cyanosis, clubbing, edema NEUROLOGIC: Cranial nerves II through XII grossly normal. Motor is 5/5 in all extremities. Gait is intact. RECTAL/GENITOURINARY: Refused and deferred. PSYCHIATRIC: Mood and affect is intact. Assessment/Plan Assessment/Plan ASSESSMENT: 1. COVID-19 pneumonia. 2. Mild hypoxemia. 3. Acute urinary tract infection. PLAN: 1. Admit the patient to monitored unit. 2. We will follow up with Dr. Jenkins, Pulmonary Critical Care. 3. The patient placed on COVID-19 isolation room. 4. Code status is Full code. 5. DVT prophylaxis with heparin subcutaneous. 6. Start the patient on broad-spectrum antibiotic with Rocephin and azithromycin. 7. Continue Sebastián Tamayo MD Mar 18, 2020 15:36
[2020-03-18 16:00] VITALS: BP 99/56
--- NOTE | 2020-03-18 19:15 | NUR ---
HAND-OFF: Report given to Zakiya/RN, Patient is in stable condition. Endorsed plan of care.
--- NOTE | 2020-03-18 19:15 | NUR ---
NURSE NOTES: Report received from MAYTE Bustos. Patient awake, alert, and oriented. Mainly angolan speaking, but able to understand basic slovak. Not in acute distress or shortness of breath. No complaints of pain or discomfort. IV on RAC#22g asymptomatic and flushed. on 2L nasal cannula, saturating well. Bed in lowest position, brakes engaged, bed rails raised x2. Will continue to monitor.
[2020-03-18 20:00] VITALS: BP 104/66
[2020-03-18] MEDS: cefTRIAXone 1 GM in D5W 55 ML IVPB SCH (20:08)
[2020-03-18] MEDS: Azithromycin 250 MG in D5W 275 ML IV SCH (20:43)
[2020-03-19] VITALS (7 sets, daily range): BP systolic 107–119; BP diastolic 53–71
[2020-03-19 05:47] LABS: BASOPHILS % (AUTO) 0.6 % (0.0-2.0); EOSINOPHILS % (AUTO) 0.1 % (0.0-3.0); HEMATOCRIT 33.6 % (37.0-47.0); LYMPHOCYTES % (AUTO) 13.5 % (20.0-45.0); MEAN CORPUSCULAR VOLUME 92 FL (80-99); MONOCYTES % (AUTO) 6.6 % (1.0-10.0); NEUTROPHILS % (AUTO) 79.2 % (45.0-75.0); PLATELET COUNT 297 K/UL (150-450); RED BLOOD COUNT 3.67 M/UL (4.20-5.40); RED CELL DISTRIBUTION WIDTH 11.8 % (11.6-14.8); WHITE BLOOD COUNT 7.4 K/UL (4.8-10.8)
[2020-03-19 06:15] LABS: ANION GAP 9 mmol/L (5-15); BLOOD UREA NITROGEN 13 mg/dL (7-18); CALCIUM 8.5 MG/DL (8.5-10.1); CARBON DIOXIDE 27 MMOL/L (21-32); CHLORIDE 105 MMOL/L (98-107); CREATININE 0.8 MG/DL (0.55-1.30); POTASSIUM 3.7 MMOL/L (3.5-5.1); SODIUM 141 MMOL/L (136-145)
--- NOTE | 2020-03-19 07:21 | NUR ---
HAND-OFF: Report given to MAYTE Bustos. Patient stable. Plan of care endorsed.
--- NOTE | 2020-03-19 07:22 | NUR ---
NURSE NOTES: Received report from Zakiya/RN, Patient is awake, alert and oriented x4, Eating breakfast in bed, On 2L nasal canula, no distress/SOB noted at this time. Able to make needs known. IV on Left Hand, patent and intact, running TKO. Bed in lowest position and locked, Call light within reach, Encouraged to use call light when needed. Side rails up x2. Will continue plan of care.
--- NOTE | 2020-03-19 07:26 | Consultation ---
History of Present Illness General Date patient seen: Mar 19, 2020 Time patient seen: 09:12 Chief Complaint: General Complaint Referring physician: dr. bauman Reason for Consultation: covid Present Illness HPI 49yo woman with no PMH prsents with fever, chills since 03/13. took ampicillin but symptoms worsened. reports mild cough and mild sob, which have all resolved. grecia diarhea, sore throat, nausea. PMH: denies PSH: appedectomy SHx: denies cig, eto, drugs. lives with friend Allergies: Coded Allergies: No Known Allergies (Unverified , 03/16/20) Patient History Healthcare decision maker Resuscitation status Advanced Directive on File Review of Systems All Other Systems: negative except mentioned in HPI Physical Exam General Appearance: no apparent distress, alert HEENT: normocephalic, atraumatic, anicteric, mucous membranes moist, EOMI, supple Respiratory/Chest: chest wall non-tender, no respiratory distress, no accessory muscle use, rhonchi - bilaterally, expiratory wheezing Cardiovascular/Chest: normal rate, regular rhythm Abdomen: normal bowel sounds, non tender, soft, no organomegaly, no mass Extremities: non-tender, normal inspection, no calf tenderness Skin Exam: normal pigmentation, warm/dry Neurologic: no motor/sensory deficits, alert, responsive, normal mood/affect Last 24 Hour Vital Signs Date Time Temp Pulse Resp B/P (MAP) Pulse Ox O2 Delivery O2 Flow Rate FiO2 03/19/20 04:00 96.6 69 18 110/65 (80) 97 03/19/20 04:00 63 03/19/20 00:00 97.9 64 18 107/64 (78) 96 03/19/20 00:00 67 03/18/20 21:00 Nasal Cannula 2.0 03/18/20 20:00 80 03/18/20 20:00 97.5 74 18 104/66 (79) 97 03/18/20 16:00 82 03/18/20 16:00 98.1 77 18 99/56 (70) 97 03/18/20 12:00 79 03/18/20 12:00 97.9 82 18 103/53 (70) 94 03/18/20 09:00 Nasal Cannula 2.0 03/18/20 08:00 98 03/18/20 08:00 98.6 90 20 102/62 (75) 98 Intake and Output 03/18/20 03/19/20 19:00 07:00 Intake Total 520 ml 150 ml Balance 520 ml 150 ml Intake Oral 520 ml Other 150 ml # Voids 2 1 # Bowel Movements 1 Laboratory Tests Test 03/19/20 04:10 White Blood Count 7.4 K/UL (4.8-10.8) Red Blood Count 3.67 M/UL (4.20-5.40) L Hemoglobin 11.0 G/DL (12.0-16.0) L Hematocrit 33.6 % (37.0-47.0) L Mean Corpuscular Volume 92 FL (80-99) Mean Corpuscular Hemoglobin 30.0 PG (27.0-31.0) Mean Corpuscular Hemoglobin Concent 32.7 G/DL (32.0-36.0) Red Cell Distribution Width 11.8 % (11.6-14.8) Platelet Count 297 K/UL (150-450) Mean Platelet Volume 6.4 FL (6.5-10.1) L Neutrophils (%) (Auto) 79.2 % (45.0-75.0) H Lymphocytes (%) (Auto) 13.5 % (20.0-45.0) L Monocytes (%) (Auto) 6.6 % (1.0-10.0) Eosinophils (%) (Auto) 0.1 % (0.0-3.0) Basophils (%) (Auto) 0.6 % (0.0-2.0) Sodium Level 141 MMOL/L (136-145) Potassium Level 3.7 MMOL/L (3.5-5.1) Chloride Level 105 MMOL/L (98-107) Carbon Dioxide Level 27 MMOL/L (21-32) Anion Gap 9 mmol/L (5-15) Blood Urea Nitrogen 13 mg/dL (7-18) Creatinine 0.8 MG/DL (0.55-1.30) Estimat Glomerular Filtration Rate > 60 mL/min (>60) Glucose Level 104 MG/DL (74-106) Calcium Level 8.5 MG/DL (8.5-10.1) Height (Feet): 5 Height (Inches): 1.00 Weight (Pounds): 145 Medications Current Medications Medications (Trade) Dose Ordered Sig/Sammie Route PRN Reason Start Time Stop Time Status Last Admin Dose Admin Acetaminophen (Tylenol) 650 mg Q4H PRN ORAL FEVER 03/16/20 21:45 04/15/20 21:44 Albuterol/ Ipratropium (Combivent Respimat) 1 puff Q4H PRN INH Shortness of Breath 03/16/20 22:00 04/15/20 21:59 Azithromycin 250 mg/Dextrose 275 ml @ 275 mls/hr Q24H IV 03/17/20 20:00 03/22/20 19:59 03/18/20 20:43 Ceftriaxone Sodium 1 gm/ Dextrose 55 ml @ 110 mls/hr Q24H IVPB 03/17/20 20:00 03/24/20 19:59 03/18/20 20:08 Dexamethasone (Decadron) 4 mg DAILY ORAL 03/17/20 09:00 04/16/20 08:59 03/18/20 08:30 Dextrose (Dextrose 50%) 25 ml Q30M PRN IV Hypoglycemia 03/16/20 21:45 06/14/20 21:44 Dextrose (Dextrose 50%) 50 ml Q30M PRN IV Hypoglycemia 03/16/20 21:45 06/14/20 21:44 Heparin Sodium (Porcine) (Heparin 5000 units/ml) 5,000 units EVERY 12 HOURS SUBQ 03/17/20 09:00 05/01/20 08:59 03/18/20 20:11 Ondansetron HCl (Zofran) 4 mg Q6H PRN IVP Nausea & Vomiting 03/16/20 21:45 04/15/20 21:44 Polyethylene Glycol (Miralax) 17 gm DAILYPRN PRN ORAL Constipation 03/16/20 21:45 04/15/20 21:44 Promethazine HCl/ Codeine (Phenergan with Codeine) 5 ml Q6H PRN ORAL cough 03/16/20 21:45 04/15/20 21:44 03/18/20 11:30 Assessment/Plan Assessment/Plan: Fever on oxygen for comfort. satting at 95% on RA--checked with RN in room Mild leukocytosis Sepsis COVID 19 PNA CXR: Patchy areas of increased hazy opacities in the lungs, left worse than right. An acute infectious/inflammatory process should be considered. Unlikely UTI Asymtpomatic UA neg Appendectomy Plan: Ceftriaxone and azithromycin #3/5 Dexamethasone #2/10 will consider RDV if oxygen requirement increase monitor temp and cbc monitor resp status covid isolation f/u Bcx trend inflammatry markers incentive spirometry proning if possible friend should get tested DW Layo Benjamin MD Mar 19, 2020 07:26
[2020-03-19] MEDS: Promethazine/Codeine 5ml UD ORAL PRN (08:33)
[2020-03-19] MEDS: Heparin 5000 units/ml inj SUBQ SCH ×2 (08:34→20:08)
--- NOTE | 2020-03-19 10:36 | NUR ---
CASE MANAGEMENT: REVIEW 03/19/2020 SI:COVID-19 PNEUMONIA + 97.9 84 70 18 119/53 97% ON 1L/NC IS:DECADRON PO QD CEFTRIAXONE IV Q24H AZITHROMYCIN IV Q24H \: 2E TELE UNIT DCP: HOME WHEN STABLE PLAN OF CARE: CONT BREATHING EXERCISES ENCOURAGE PRONING ENCOURAGE INCENTIVE SPIROMETER
--- NOTE | 2020-03-19 15:37 | Internal Med Progress Note ---
Subjective Date of Service: Mar 19, 2020 Physician Name CeliaSebastián Attending Physician Anil Howard MD Current Medications Medications (Trade) Dose Ordered Sig/Sammie Route PRN Reason Start Time Stop Time Status Last Admin Dose Admin Acetaminophen (Tylenol) 650 mg Q4H PRN ORAL FEVER 03/16/20 21:45 04/15/20 21:44 Albuterol/ Ipratropium (Combivent Respimat) 1 puff Q4H PRN INH Shortness of Breath 03/16/20 22:00 04/15/20 21:59 Azithromycin 250 mg/Dextrose 275 ml @ 275 mls/hr Q24H IV 03/17/20 20:00 03/22/20 19:59 03/18/20 20:43 Ceftriaxone Sodium 1 gm/ Dextrose 55 ml @ 110 mls/hr Q24H IVPB 03/17/20 20:00 03/24/20 19:59 03/18/20 20:08 Dexamethasone (Decadron) 4 mg DAILY ORAL 03/17/20 09:00 04/16/20 08:59 03/19/20 08:29 Dextrose (Dextrose 50%) 25 ml Q30M PRN IV Hypoglycemia 03/16/20 21:45 06/14/20 21:44 Dextrose (Dextrose 50%) 50 ml Q30M PRN IV Hypoglycemia 03/16/20 21:45 06/14/20 21:44 Heparin Sodium (Porcine) (Heparin 5000 units/ml) 5,000 units EVERY 12 HOURS SUBQ 03/17/20 09:00 05/01/20 08:59 03/19/20 08:34 Ondansetron HCl (Zofran) 4 mg Q6H PRN IVP Nausea & Vomiting 03/16/20 21:45 04/15/20 21:44 Polyethylene Glycol (Miralax) 17 gm DAILYPRN PRN ORAL Constipation 03/16/20 21:45 04/15/20 21:44 Promethazine HCl/ Codeine (Phenergan with Codeine) 5 ml Q6H PRN ORAL cough 03/16/20 21:45 04/15/20 21:44 03/19/20 08:33 Allergies: Coded Allergies: No Known Allergies (Unverified , 03/16/20) ROS Limited/Unobtainable: No Constitutional: Reports: no symptoms HEENT: Reports: no symptoms Respiratory: Reports: shortness of breath Gastrointestinal/Abdominal: Reports: no symptoms Genitourinary: Reports: no symptoms Neurologic/Psychiatric: Reports: no symptoms Subjective 49 YO F admitted with cough and fever. Now COVID 19 pneumonia. Cover for Int Rashawn-DR Howard Objective Last Vital Signs Date Time Temp Pulse Resp B/P (MAP) Pulse Ox O2 Delivery O2 Flow Rate FiO2 03/19/20 12:00 97.7 79 18 111/71 (84) 96 03/19/20 09:00 Nasal Cannula 1.0 03/16/20 22:00 93 Laboratory Tests Test 03/19/20 04:10 White Blood Count 7.4 K/UL (4.8-10.8) Red Blood Count 3.67 M/UL (4.20-5.40) L Hemoglobin 11.0 G/DL (12.0-16.0) L Hematocrit 33.6 % (37.0-47.0) L Mean Corpuscular Volume 92 FL (80-99) Mean Corpuscular Hemoglobin 30.0 PG (27.0-31.0) Mean Corpuscular Hemoglobin Concent 32.7 G/DL (32.0-36.0) Red Cell Distribution Width 11.8 % (11.6-14.8) Platelet Count 297 K/UL (150-450) Mean Platelet Volume 6.4 FL (6.5-10.1) L Neutrophils (%) (Auto) 79.2 % (45.0-75.0) H Lymphocytes (%) (Auto) 13.5 % (20.0-45.0) L Monocytes (%) (Auto) 6.6 % (1.0-10.0) Eosinophils (%) (Auto) 0.1 % (0.0-3.0) Basophils (%) (Auto) 0.6 % (0.0-2.0) Sodium Level 141 MMOL/L (136-145) Potassium Level 3.7 MMOL/L (3.5-5.1) Chloride Level 105 MMOL/L (98-107) Carbon Dioxide Level 27 MMOL/L (21-32) Anion Gap 9 mmol/L (5-15) Blood Urea Nitrogen 13 mg/dL (7-18) Creatinine 0.8 MG/DL (0.55-1.30) Estimat Glomerular Filtration Rate > 60 mL/min (>60) Glucose Level 104 MG/DL (74-106) Calcium Level 8.5 MG/DL (8.5-10.1) Microbiology Date/Time Source Procedure Growth Status 03/16/20 20:00 Blood Blood Culture - Preliminary NO GROWTH AFTER 48 HOURS Resulted 03/16/20 19:45 Blood Blood Culture - Preliminary NO GROWTH AFTER 48 HOURS Resulted 03/17/20 14:00 Sputum Gram Stain - Final Complete 03/17/20 14:00 Sputum Sputum Culture - Final NORMAL UPPER RESPIRATORY TAMIKO PRESENT Complete 03/16/20 20:00 Nasopharynx SARS-CoV-2 RdRp Gene Assay - Final Complete 03/16/20 20:10 Urine,Clean Catch Urine Culture - Final Escherichia Coli Complete Intake and Output 03/18/20 03/19/20 19:00 07:00 Intake Total 520 ml 150 ml Balance 520 ml 150 ml Intake Oral 520 ml Other 150 ml # Voids 2 1 # Bowel Movements 1 Objective PHYSICAL EXAMINATION: GENERAL: The patient is awake and responsive, no acute distress. HEENT: Head and neck examination, pupils are equal and reactive to light. Extraocular movements intact. NECK: Supple. No JVD. LUNGS: Good air entry. No wheeze or rales. HEART: S1, S2. Regular rhythm. No gallops. ABDOMEN: Soft, nondistended, nontender. Positive bowel sounds. EXTREMITIES: No cyanosis, clubbing, edema NEUROLOGIC: Cranial nerves II through XII grossly normal. Motor is 5/5 in all extremities. Gait is intact. RECTAL/GENITOURINARY: Refused and deferred. PSYCHIATRIC: Mood and affect is intact. Assessment/Plan Assessment/Plan ASSESSMENT: 1. COVID-19 pneumonia. 2. Mild hypoxemia. 3. Acute urinary tract infection=E. Coli PLAN: 1. Admit the patient to monitored unit. 2. We will follow up with Dr. Jenkins, Pulmonary Critical Care. 3. The patient placed on COVID-19 isolation room. 4. Code status is Full code. 5. DVT prophylaxis with heparin subcutaneous. 6. antibiotic with Rocephin and azithromycin. 7. Continue decadron 8. ID=Sebastián Hutchinson MD Mar 19, 2020 15:37
--- NOTE | 2020-03-19 19:05 | NUR ---
HAND-OFF: Report given to Carly/RN, Patient is in stable condition, Endorsed plan of care.
--- NOTE | 2020-03-19 19:20 | NUR ---
NURSE NOTES: Received report from MAYTE Isbell. Patient is awake, alert and oriented x 4, Yoruba speaking. On regular diet, instructed and amenable. On oxygen via nasal cannula with no shortness of breath reported, saturating 95%. cardiac monitor technician is in placed, shows sinus rhythm with no chest pain at this time. IV site is on left hand G-22 saline lock that is patent and intact. Patient is ambulatory with steady gait. Safety measures are in placed, bed in lowest and locked position, side rails up x 2. Call light button and bedside table within reach, advised to call for any assistance needed, will continue plan of care.
[2020-03-19] MEDS: Azithromycin 250 MG in D5W 275 ML IV SCH (20:08)
[2020-03-19] MEDS: cefTRIAXone 1 GM in D5W 55 ML IVPB SCH (20:09)
[2020-03-20] VITALS: BP 111/58
[2020-03-20 04:00] VITALS: BP 106/64
--- NOTE | 2020-03-20 07:20 | NUR ---
HAND-OFF: Report given to MAYTE Uribe. Patient is on bed, on stable condition, plan of care endorsed.
[2020-03-20 08:00] VITALS: BP 107/66
--- NOTE | 2020-03-20 08:07 | NUR ---
NURSE NOTES: Received patient in bed awake. O2 via NC in place, no SOB or acute distress. IV line intact and patent. HOB elevated. Bed locked in lowest position. Call light within reach. Will continue plan of care.
[2020-03-20] MEDS: Heparin 5000 units/ml inj SUBQ SCH (08:25)
--- NOTE | 2020-03-20 10:39 | Infectious Diseases Prog Note ---
Assessment/Plan Fever, SP Mild leukocytosis, SP Sepsis -03/16 Bcx NTD COVID 19 PNA- on 1l NC 03/17 sp cx normal resp junaid 03/16 CXR: Patchy areas of increased hazy opacities in the lungs, left worse than right. An acute infectious/inflammatory process should be considered. rapid covid test + D-dimer 0.95 (03/16) CRP 30.3 (03/16), 12.9 (03/18) Ferritin 573 (03/16) Unlikely UTI Asymtpomatic bacteriuria UA neg; ucx >100k E.coli (R amp, bactrim) hx of Appendectomy Plan: Ceftriaxone and azithromycin #4/5 Dexamethasone #3/10 will consider RDV if oxygen requirement increase -repeat ABG monitor temp and cbc monitor resp status covid isolation f/u Bcx trend inflammatry markers and CXR incentive spirometry proning if possible friend should get tested DW RN Subjective Allergies: Coded Allergies: No Known Allergies (Unverified , 03/16/20) afebrile >72hrs at 1l NC leukocytosis resolved Objective Last 24 Hour Vital Signs Date Time Temp Pulse Resp B/P (MAP) Pulse Ox O2 Delivery O2 Flow Rate FiO2 03/20/20 09:00 Nasal Cannula 1.0 03/20/20 08:00 84 03/20/20 08:00 97.7 84 20 107/66 (80) 95 03/20/20 04:00 98.0 71 20 106/64 (78) 95 03/20/20 04:00 57 03/20/20 00:00 97.7 66 16 111/58 (75) 95 03/20/20 00:00 60 03/19/20 21:00 Nasal Cannula 1.0 03/19/20 20:00 64 03/19/20 20:00 97.5 69 17 108/62 (77) 95 03/19/20 16:00 97.9 65 18 108/66 (80) 97 03/19/20 16:00 65 03/19/20 14:00 97.9 65 18 108/66 (80) 97 03/19/20 12:00 97.7 79 18 111/71 (84) 96 03/19/20 12:00 74 Height (Feet): 5 Height (Inches): 1.00 Weight (Pounds): 145 not examined to limit COVID19 exposure Microbiology Date/Time Source Procedure Growth Status 03/17/20 14:00 Sputum Gram Stain - Final Complete 03/17/20 14:00 Sputum Sputum Culture - Final NORMAL UPPER RESPIRATORY JUNAID PRESENT Complete Current Medications Medications (Trade) Dose Ordered Sig/Sammie Route PRN Reason Start Time Stop Time Status Last Admin Dose Admin Acetaminophen (Tylenol) 650 mg Q4H PRN ORAL FEVER 03/16/20 21:45 04/15/20 21:44 Albuterol/ Ipratropium (Combivent Respimat) 1 puff Q4H PRN INH Shortness of Breath 03/16/20 22:00 04/15/20 21:59 Azithromycin 250 mg/Dextrose 275 ml @ 275 mls/hr Q24H IV 03/17/20 20:00 03/22/20 19:59 03/19/20 20:08 Ceftriaxone Sodium 1 gm/ Dextrose 55 ml @ 110 mls/hr Q24H IVPB 03/17/20 20:00 03/24/20 19:59 03/19/20 20:09 Dexamethasone (Decadron) 4 mg DAILY ORAL 03/17/20 09:00 04/16/20 08:59 03/20/20 08:23 Dextrose (Dextrose 50%) 25 ml Q30M PRN IV Hypoglycemia 03/16/20 21:45 06/14/20 21:44 Dextrose (Dextrose 50%) 50 ml Q30M PRN IV Hypoglycemia 03/16/20 21:45 06/14/20 21:44 Heparin Sodium (Porcine) (Heparin 5000 units/ml) 5,000 units EVERY 12 HOURS SUBQ 03/17/20 09:00 05/01/20 08:59 03/20/20 08:25 Ondansetron HCl (Zofran) 4 mg Q6H PRN IVP Nausea & Vomiting 03/16/20 21:45 04/15/20 21:44 Polyethylene Glycol (Miralax) 17 gm DAILYPRN PRN ORAL Constipation 03/16/20 21:45 04/15/20 21:44 Promethazine HCl/ Codeine (Phenergan with Codeine) 5 ml Q6H PRN ORAL cough 03/16/20 21:45 04/15/20 21:44 03/19/20 08:33 Maria Guadalupe Loomis M.D. Mar 20, 2020 10:39
--- NOTE | 2020-03-20 11:07 | NUR ---
NURSE NOTES: Unable to do Tspot STAT, spoke to Michaela of lab, said that Tspot is done cleaning porter and right now is too late.Dr Loomis made aware, awaiting response. Addendum: 03/20/20 at 1115 by Jojo Saavedra RN NURSE NOTES: May include Tspot in tomorrow AM labs as per Dr Loomis.
[2020-03-20 12:00] VITALS: BP 118/55
--- NOTE | 2020-03-20 12:04 | Pulmonology Progress Note ---
Subjective ROS Limited/Unobtainable: No Allergies: Coded Allergies: No Known Allergies (Unverified , 03/16/20) Objective Last 24 Hour Vital Signs Date Time Temp Pulse Resp B/P (MAP) Pulse Ox O2 Delivery O2 Flow Rate FiO2 03/20/20 09:00 Nasal Cannula 1.0 03/20/20 08:00 84 03/20/20 08:00 97.7 84 20 107/66 (80) 95 03/20/20 04:00 98.0 71 20 106/64 (78) 95 03/20/20 04:00 57 03/20/20 00:00 97.7 66 16 111/58 (75) 95 03/20/20 00:00 60 03/19/20 21:00 Nasal Cannula 1.0 03/19/20 20:00 64 03/19/20 20:00 97.5 69 17 108/62 (77) 95 03/19/20 16:00 97.9 65 18 108/66 (80) 97 03/19/20 16:00 65 03/19/20 14:00 97.9 65 18 108/66 (80) 97 Intake and Output 03/19/20 03/20/20 19:00 07:00 Intake Total 840 ml 360 ml Balance 840 ml 360 ml Intake Oral 840 ml 360 ml # Voids 3 4 General Appearance: WD/WN HEENT: normocephalic, atraumatic Respiratory: chest wall non-tender, rhonchi - right Breasts: no masses, no discharge Cardiovascular: normal peripheral pulses Abdomen: normal bowel sounds, soft, non tender Genitourinary: normal external genitalia Skin: no rash 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 Lymphatic: no neck adenopathy Microbiology Date/Time Source Procedure Growth Status 03/17/20 14:00 Sputum Gram Stain - Final Complete 03/17/20 14:00 Sputum Sputum Culture - Final NORMAL UPPER RESPIRATORY TAMIKO PRESENT Complete Laboratory Tests 03/20/20 11:20: Arterial Blood pH 7.461H, Arterial Blood Partial Pressure CO2 35.9, Arterial Blood Partial Pressure O2 77.5, Arterial Blood HCO3 25.0, Arterial Blood Oxygen Saturation 95.1, Arterial Blood Base Excess 1.5, Jeronimo Test Positive Current Medications Medications (Trade) Dose Ordered Sig/Sammie Route PRN Reason Start Time Stop Time Status Last Admin Dose Admin Acetaminophen (Tylenol) 650 mg Q4H PRN ORAL FEVER 03/16/20 21:45 04/15/20 21:44 Albuterol/ Ipratropium (Combivent Respimat) 1 puff Q4H PRN INH Shortness of Breath 03/16/20 22:00 04/15/20 21:59 Azithromycin 250 mg/Dextrose 275 ml @ 275 mls/hr Q24H IV 03/17/20 20:00 03/22/20 19:59 03/19/20 20:08 Ceftriaxone Sodium 1 gm/ Dextrose 55 ml @ 110 mls/hr Q24H IVPB 03/17/20 20:00 03/24/20 19:59 03/19/20 20:09 Dexamethasone (Decadron) 4 mg DAILY ORAL 03/17/20 09:00 04/16/20 08:59 03/20/20 08:23 Dextrose (Dextrose 50%) 25 ml Q30M PRN IV Hypoglycemia 03/16/20 21:45 06/14/20 21:44 Dextrose (Dextrose 50%) 50 ml Q30M PRN IV Hypoglycemia 03/16/20 21:45 06/14/20 21:44 Heparin Sodium (Porcine) (Heparin 5000 units/ml) 5,000 units EVERY 12 HOURS SUBQ 03/17/20 09:00 05/01/20 08:59 03/20/20 08:25 Ondansetron HCl (Zofran) 4 mg Q6H PRN IVP Nausea & Vomiting 03/16/20 21:45 04/15/20 21:44 Polyethylene Glycol (Miralax) 17 gm DAILYPRN PRN ORAL Constipation 03/16/20 21:45 04/15/20 21:44 Promethazine HCl/ Codeine (Phenergan with Codeine) 5 ml Q6H PRN ORAL cough 03/16/20 21:45 04/15/20 21:44 03/19/20 08:33 Assessment/Plan Problems: (1) Pneumonia due to COVID-19 virus (2) Sepsis (3) COVID-19 (4) UTI (urinary tract infection) Assessment/Plan afebrile oxygen saturation improving dyspnea improving she could go home with isolation when cleared by Keren Mendoza MD Mar 20, 2020 12:04
--- NOTE | 2020-03-20 13:12 | Internal Med Progress Note ---
Subjective Date of Service: Mar 20, 2020 Physician Name CeliaSebastián Attending Physician Anil Howard MD Current Medications Medications (Trade) Dose Ordered Sig/Sammie Route PRN Reason Start Time Stop Time Status Last Admin Dose Admin Acetaminophen (Tylenol) 650 mg Q4H PRN ORAL FEVER 03/16/20 21:45 04/15/20 21:44 Albuterol/ Ipratropium (Combivent Respimat) 1 puff Q4H PRN INH Shortness of Breath 03/16/20 22:00 04/15/20 21:59 Azithromycin 250 mg/Dextrose 275 ml @ 275 mls/hr Q24H IV 03/17/20 20:00 03/22/20 19:59 03/19/20 20:08 Ceftriaxone Sodium 1 gm/ Dextrose 55 ml @ 110 mls/hr Q24H IVPB 03/17/20 20:00 03/24/20 19:59 03/19/20 20:09 Dexamethasone (Decadron) 4 mg DAILY ORAL 03/17/20 09:00 04/16/20 08:59 03/20/20 08:23 Dextrose (Dextrose 50%) 25 ml Q30M PRN IV Hypoglycemia 03/16/20 21:45 06/14/20 21:44 Dextrose (Dextrose 50%) 50 ml Q30M PRN IV Hypoglycemia 03/16/20 21:45 06/14/20 21:44 Heparin Sodium (Porcine) (Heparin 5000 units/ml) 5,000 units EVERY 12 HOURS SUBQ 03/17/20 09:00 05/01/20 08:59 03/20/20 08:25 Ondansetron HCl (Zofran) 4 mg Q6H PRN IVP Nausea & Vomiting 03/16/20 21:45 04/15/20 21:44 Polyethylene Glycol (Miralax) 17 gm DAILYPRN PRN ORAL Constipation 03/16/20 21:45 04/15/20 21:44 Promethazine HCl/ Codeine (Phenergan with Codeine) 5 ml Q6H PRN ORAL cough 03/16/20 21:45 04/15/20 21:44 03/19/20 08:33 Allergies: Coded Allergies: No Known Allergies (Unverified , 03/16/20) ROS Limited/Unobtainable: No Constitutional: Reports: no symptoms Cardiovascular: Reports: no symptoms Respiratory: Reports: cough, shortness of breath Gastrointestinal/Abdominal: Reports: no symptoms Genitourinary: Reports: no symptoms Neurologic/Psychiatric: Reports: no symptoms Subjective 49 YO F admitted with cough and fever. Now COVID 19 pneumonia. Cover for Int Rashawn-DR Howard Objective Last Vital Signs Date Time Temp Pulse Resp B/P (MAP) Pulse Ox O2 Delivery O2 Flow Rate FiO2 03/20/20 09:00 Nasal Cannula 1.0 03/20/20 08:00 84 03/20/20 08:00 97.7 20 107/66 (80) 95 03/16/20 22:00 93 Laboratory Tests Test 03/20/20 11:20 Arterial Blood pH 7.461 (7.350-7.450) Arterial Blood Partial Pressure CO2 35.9 mmHg (35.0-45.0) Arterial Blood Partial Pressure O2 77.5 mmHg (75.0-100.0) Arterial Blood HCO3 25.0 mmol/L (22.0-26.0) Arterial Blood Oxygen Saturation 95.1 % (95-100) Arterial Blood Base Excess 1.5 (-2-2) Jeronimo Test Positive Microbiology Date/Time Source Procedure Growth Status 03/17/20 14:00 Sputum Gram Stain - Final Complete 03/17/20 14:00 Sputum Sputum Culture - Final NORMAL UPPER RESPIRATORY TAMIKO PRESENT Complete Intake and Output 03/19/20 03/20/20 19:00 07:00 Intake Total 840 ml 360 ml Balance 840 ml 360 ml Intake Oral 840 ml 360 ml # Voids 3 4 Objective PHYSICAL EXAMINATION: GENERAL: The patient is awake and responsive, no acute distress. HEENT: Head and neck examination, pupils are equal and reactive to light. Extraocular movements intact. NECK: Supple. No JVD. LUNGS: Good air entry. No wheeze or rales. HEART: S1, S2. Regular rhythm. No gallops. ABDOMEN: Soft, nondistended, nontender. Positive bowel sounds. EXTREMITIES: No cyanosis, clubbing, edema NEUROLOGIC: Cranial nerves II through XII grossly normal. Motor is 5/5 in all extremities. Gait is intact. RECTAL/GENITOURINARY: Refused and deferred. PSYCHIATRIC: Mood and affect is intact. Assessment/Plan Assessment/Plan ASSESSMENT: 1. COVID-19 pneumonia. 2. Mild hypoxemia. 3. Acute urinary tract infection=E. Coli PLAN: 1. Admit the patient to monitored unit. 2. We will follow up with Dr. Jenkins, Pulmonary Critical Care. 3. The patient placed on COVID-19 isolation room. 4. Code status is Full code. 5. DVT prophylaxis with heparin subcutaneous. 6. antibiotic with Rocephin and azithromycin. 7. Continue decadron 8. ID=Sebastián Hutchinson MD Mar 20, 2020 13:12
[2020-03-20] MEDS ORDERED: DECADRON2 MG ORAL (13:35)
[2020-03-20] MEDS ORDERED: DEXAMETHASONE2 MG PO (14:02)
[2020-03-20] MEDS ORDERED: AZITHROMYC200 MG/5 M ORAL (14:03)
--- NOTE | 2020-03-20 14:25 | NUR ---
RADIOLOGY DEPT., CHEST X-RAY DONE.-P.DYE
--- NOTE | 2020-03-20 15:00 | NUR ---
NURSE NOTES: Patient discharged home in stable condition. Discharge instructions given, verbalized understanding. Prescription given. Belongings accounted for. No new skin issues noted. IV line removed. Wheeled down to lobby by nurse, picked up by friend and transported via private vehicle.
--- NOTE | 2020-03-20 17:16 | Diagnostic Imaging Report ---
Indication: Cough Technique: One view of the chest Comparison: 03/16/2020 Findings: Bilateral interstitial and airspace opacities in a peribronchovascular distribution have worsened since the prior study, particularly on the right. The pleural spaces are clear. The heart size is normal. Impression: Worsening bilateral infiltrates, likely pneumonia, quite possibly viral. Correlate with clinical findings
--- NOTE | 2020-03-21 14:49 | Discharge Summary ---
Discharge Summary Discharge Summary _ DATE OF ADMISSION: 03/16/2020 DATE OF DISCHARGE: 03/20/2020 DISCHARGED BY: Dr. Howard REASON FOR ADMISSION: 49 years old female with no significant past medical history, presented to emergency department due to fevers and sore throat. Patient was seen in the clinic the day prior to presentation to ED and was sent home on amoxicillin , which patient was taking. Patient reported persistent sweats, fevers and chills as well as persistent sore throat. She denied nasal congestion. She reported mild cough. She denied shortness of breath, chest pain, palpitations. No nausea, vomiting or diarrhea. No known sick contacts, and no recent travel. Upon evaluation patient was febrile with temperature 102.9 and tachycardic with heart rate 142. Pulse oximetry was 92% on room air. Laboratory work-up revealed mild leukocytosis ,stable hemoglobin ,hematocrit and platelet count. D-dimer elevated 0.95. Stable electrolytes and renal parameters. Glucose 146. Lactic acid 1.3. Troponin negative, pro BNP 29. CRP 30.3 Stable LFT. Urinalysis revealed +4 r protein ,+2 leukocyte esterase , borderline pyuria and moderate bacteria. ABG on room air was stable. Chest x-ray revealed patchy areas of increased hazy opacity in the lung , left worse than right. Consider acute infectious/inflammatory process. Rapid COVID-19 test in the emergency room was positive. Patient pancultured, started on empiric antibiotics and IV fluids, and admitted for further management. CONSULTANTS: pulmonary Dr. Jenkins ID specialist Dr. Loomis [facility] COURSE: Patient admitted to telemetry floor. Patient started on ceftriaxone and azithromycin for pneumonia. Patient also started on IV Decadron. Patient was on full anticoagulation with Lovenox. Pulmonary toilet provided. Supplemental oxygen provided and titrated to keep pulse oximetry above 90%. Blood cultures were negative. Urine culture revealed E. coli. Sputum culture was negative. Follow-up chest x-ray prior to discharge demonstrated worsening bilateral infiltrates, likely pneumonia, but possibly viral. Mild leukocytosis and fevers resolved. ID specialist recommended complete steroids and antibiotic. Consider Remdesivir if oxygen requirement increased. Inflammatory markers were trending . Incentive spirometry provided as needed . patient was pronating as tolerated. CRP trended down from 30 to 12. Patient clinically stabilized and was ready for discharge home. FINAL DIAGNOSES: Confirmed COVID-19 infection Pneumonia due to COVID 19 virus Sepsis E. coli UTI DISCHARGE MEDICATIONS: See Medication Reconciliation list. DISCHARGE INSTRUCTIONS: Patient was discharged home. Follow up with primary care provider in one week. I have been assigned to dictate discharge summary for this account. I was not involved in the patient's management. Jennifer Pruett NP Mar 21, 2020 14:49
== END 2020-03-20 14:50 | disposition home or self-care (01) | DRG 720 ==
LOC: EMR 19:54 → 2E 20:35 → EDBEDREQ 20:46
DX: A41.9 Sepsis, unspecified organism (principal); U07.1 COVID-19; J12.89 Other viral pneumonia; N39.0 Urinary tract infection, site not specified; E87.1 Hypo-osmolality and hyponatremia; R09.02 Hypoxemia; B96.20 Unspecified Escherichia coli [E. coli] as the cause of diseases classified elsewhere
CPT/HCPCS: 36415; 36600; 71045; 80048; 80053; 80069; 81003; 82550; 82553; 82728; 82803; 83605; 83735; 83880; 84100; 84484; 85007; 85025; 85379; 85610; 85651; 85730; 86140; 87040; 87070; 87086; 87181; 87205; 93005; 99291; J7030; U0002